=== PATIENT | male | born 1995 | race Caucasian/White ===

== ENCOUNTER 2023-08-28 18:04 | Emergency (ER) | payer BC, SELFPAY ==
[2023-08-28 18:15] VITALS: BP 130/82; PULSE 82; RESP 18; O2SAT 96; BMI 37.9
--- NOTE | 2023-08-28 18:31 | ED.GENADULT ---
HPI - General Adult General Chief complaint: Extremity Pain/Injury, Lower Stated complaint: R ankle roll rollerskating Time Seen by Provider: 08/28/23 18:31 History of Present Illness HPI narrative: Pt was rollerskating approx2 hours ago. Fell backwards onto R side. R ankle appears swollen and reddened. Able to bear weight on extremity. No prev injuries to extremity, no surgeries. Did not hit head 27-year-old man presenting to the emergency department with complaint of right ankle pain. Had been roller skating a couple of hours ago. Fell backward to the right side an somehow rolled his right ankle. Has been able to bear weight but it hurts a good deal. No other injuries were sustained. Related Data Home Medications ?Medication ?Instructions ?Recorded ?Confirmed citalopram 40 mg tablet (Celexa) 40 mg PO DAILY 08/28/23 08/28/23 dextroamphetamine-amphetamine 30 25 mg PO DAILY 08/28/23 08/28/23 mg tablet (Adderall) Allergies Allergy/AdvReac Type Severity Reaction Status Date / Time No Known Drug Allergies Allergy Verified 08/28/23 18:20 Review of Systems Status of ROS: Reports: 6 or more systems reviewed and unremarkable except as noted in History and below Exam Narrative: Exam Narrative: Pleasant. NAD. Breathing easily. Heart in regular rate. Moving all extremities without difficulty though clearly with some swelling and discomfort to palpation about the right ankle. Does have pain and swelling over the medial malleolus in particular. No navicular pain or lateral malleolar pain. No base of 5th metatarsal pain. To AP or varus or valgus stressors of the heel. Const: Vital Signs, click to edit/add: Vital Signs - 24 hr 08/28/23 18:15 Pulse Rate [Left P ulse Oximeter] 82 Respiratory Rate 18 Blood Pressure [Le ft Leg] 130/82 Pulse Oximetry 96 Oxygen Delivery Me thod Room Air Documenting provider has reviewed patient's vital signs: yes Course Vital Signs Vital signs: Initial Vital Signs Pulse Rate 82 08/28/23 18:15 Respiratory Rate 18 08/28/23 18:15 Blood Pressure 130/82 08/28/23 18:15 Blood Pressure Mean 98 08/28/23 18:15 Blood Pressure Position Sitting 08/28/23 18:15 Pulse Oximetry 96 05/03/24 18:15 Oxygen Delivery Method Room Air 05/03/24 18:15 Vital Signs Pulse Rate 82 08/28/23 18:15 Respiratory Rate 18 08/28/23 18:15 Blood Pressure 130/82 08/28/23 18:15 Pulse Oximetry 96 08/28/23 18:15 Oxygen Delivery Method Room Air 08/28/23 18:15 Pulse Rate 82 08/28/23 18:15 Respiratory Rate 18 08/28/23 18:15 Blood Pressure 130/82 08/28/23 18:15 Pulse Oximetry 96 08/28/23 18:15 Oxygen Delivery Method Room Air 08/28/23 18:15 Medications Administered Medications: Discontinued Medications Generic Name Dose Route Start Last Admin Trade Name Freq PRN Reason Stop Dose Admin Acetaminophen 1,000 mg 08/28/23 19:57 08/28/23 19:57 Acetaminophen 500 Mg Tablet PO 08/28/23 19:58 1,000 mg ONCE ONE Administration Medical Decision Making MDM Narrative Medical decision making narrative: Rolling the ankle off of roller skates certainly could result in more significant injury. Unusual that has actually seem to have injured the medial malleolus. I think does warrant here imaging. Acetaminophen in the ER. Ice. I did review imaging and it do not see any acute bony abnormality. There is soft tissue swelling consistent with physical exam. Study:?XRay-Extremity Right ANKLE 3V-08/28/2023 6:53:15 PM Ordering Physician:BETO Final Report: Indication: Medial malleolar pain and swelling after eversion. Technique: Right ankle 3 views. Comparison: None. Findings: Bones: Alignment is normal. No fractures or bone lesions. Joint spaces: Preserved. Questionable ankle joint effusion. Soft tissues: Moderate medial malleolar soft tissue swelling. Impression: Moderate medial malleolar soft tissue swelling. No acute fracture. See patient discharge plan further discussion/plan Discharge Plan Discharge Clinical Impression: Ankle sprain Patient Disposition: Home w/ Parent or Adult Condition: Stable Additional Instructions: It can be good to use crutches to avoid for further causing pain and therefore delaying healing. I know you do not want them but you might want to consider using them over the next few days. An air cast or gel cast as I have prescribed can be helpful to encourage early mobility. You might take this prescription to [facility] locally or elsewhere. Can take up to 800 mg of ibuprofen or up to 1000 mg of acetaminophen per dose. Alternative to the ibuprofen might be up to 500 mg of naproxen 2 times daily. I would ice your ankle with ice bag as described; can feel with ice and water and wrap on with Alonso wrap. I would ice 2-3 times daily over the next few days. Elevate and compress at rest. Take this 6 in Alonso wrap with you. A 4 in Alonso wrap can be useful as well -- we can provide this as well. See handout on ankle sprain for rehabilitation exercises Prescriptions: No Action citalopram [Celexa] 40 mg tablet 40 mg PO DAILY dextroamphetamine-amphetamine [Adderall] 30 mg tablet 25 mg PO DAILY Follow Up/Referrals: Provider,Not a Local [Primary Care Provider] - Stand Alone Forms: [employer] Info Instructions
--- NOTE | 2023-08-28 18:37 | XR_ITS ---
Patient: COURTNEY RAMIRES Facility:?[facility] Patient ID:?[id number] Site Patient ID:?[id number] Site :?[id number] Study:?XRay-Extremity Right ANKLE 3V-08/28/2023 6:53:15 PM Ordering Physician:BETO Final Report: Indication: Medial malleolar pain and swelling after eversion. Technique: Right ankle 3 views. Comparison: None. Findings: Bones: Alignment is normal. No fractures or bone lesions. Joint spaces: Preserved. Questionable ankle joint effusion. Soft tissues: Moderate medial malleolar soft tissue swelling. Impression: Moderate medial malleolar soft tissue swelling. No acute fracture. Dictated by Otis Gutierrez MD @ 08/28/2023 7:03:47 PM Signed by:?Otis Gutierrez MD @08/28/2023 7:03:47 PM (Electronic Signature)
[2023-08-28] MEDS: ACETAMINOPHEN 500 MG TABLET 1000 MG PO (19:57)
== END 2023-08-28 20:33 | disposition home or self-care (01) ==
PROVIDERS: Emergency Provider Family Medicine
DX: S93.401A Sprain of unspecified ligament of right ankle, initial encounter (principal); Y93.51 Activity, roller skating (inline) and skateboarding
CPT/HCPCS: 73610; 99283; 99284; A9270